=== PATIENT | female | born 1965 | race Caucasian/White ===

== ENCOUNTER 2019-08-01 00:34 | Outpatient (CLI) | payer OTHER, SELFPAY ==
[2019-08-01 17:31] LABS: SARS-CoV-2 RNA PCR Negative
== END 2019-08-01 00:35 | disposition home or self-care (01) ==
LOC: ANHCOVIDDT 00:34
PROVIDERS: PCP Family Medicine; Visit Provider Surgery Plastic and Reconstructive Surgery
DX: Z01.812 Encounter for preprocedural laboratory examination (principal); Z20.828 Contact with and (suspected) exposure to other viral communicable diseases
CPT/HCPCS: 87635; C9803; U0003

== ENCOUNTER 2019-08-03 01:51 | Day surgery (SDC) | payer OTHER, SELFPAY ==
[2019-07-28 10:35] VITALS: BMI 23.7
[2019-08-03] VITALS (7 sets, daily range): BP systolic 86–131; BP diastolic 62–78; PULSE 71–94; RESP 10–18; TEMP 36.3–36.6; O2SAT 98–100; BMI 24.0
[2019-08-03] MEDS: LACTATED RINGERS 1,000 ML 30 ML IV CONT ×2 (08:40→13:22)
--- NOTE | 2019-08-03 09:10 | P.PNAN_ITS ---
Anes - Initial Pre Proc Eval Procedure: Operation Date: 08/03/19 10:30 Proposed Procedures p Debulking Lower Forehead Flap, Non Atomic Alar Leobardo Graft, Revision Right Forehead, Excision Skin Lesion Anterior Scalp - Randal Amin MD Date/Time: 08/03/19 09:10 Surgeon: Randal Amin MD Pre Op Diagnosis: hx of skin cancer Patient Data Age: 53 Gender: F Height: 5 ft 3 in Weight: 61.6 kg Last Vital Signs Temp 36.3 C L 08/03/19 08:22 Pulse 76 08/03/19 08:22 Resp 16 08/03/19 08:22 BP 114/78 08/03/19 08:22 Pulse Ox 100 08/03/19 08:22 Allergies Allergy/AdvReac Type Severity Reaction Status Date / Time No Known Allergies Allergy Verified 08/03/19 08:18 Home Medications Medication Instructions Recorded Confirmed Type phentermine [Adipex-P] 37.5 mg PO DAILY 01/09/19 08/03/19 History Patient hx anesthesia problems: none Family hx anesthesia problems: none PMFSH Past Medical History Medical History BCC (basal cell carcinoma of skin) Surgical History Surgical History History of elbow surgery Status post skin flap graft Family History Family History Other Diabetes mellitus Social History Social History Smoking status: Never smoker Alcohol intake: current Spiritual care concerns: Yes (Christianity) Anes - Eval Final PreProcedure Day of Procedure 08/03/19 09:10 Patient weight: normal Heart: regular rate and rhythm Lungs: clear to auscultation Airway: Mallampati scale class II Neurological: alert and oriented Last oral intake: >/= 8 hours ASA classification: II Emergent: no Anesthetic plan: proceed Anesthesia type and monitoring: general ETT and standard monitoring Informed Consent: The patient's anesthetic plan and its attendant risks and benefits were discussed with the patient/family/POA. Questions were solicited and answers provided to the satisfaction of the patient/family/POA.
[2019-08-03] MEDS: SCOPOLAMINE 1.5 MG PATCH TRANSDERM (09:25)
--- NOTE | 2019-08-03 10:16 | WPDHPUPDATE1 ---
History and Physical Update Update Date/Time: 08/03/19 10:16 History and Physical has been reviewed, including an updated exam of the patient. There are NO changes in the patient's condition. Risks, benefits, and alternatives have been discussed and questions answered. Patient agrees to proceed with procedure.
--- NOTE | 2019-08-03 10:16 | PM.PROC ---
Procedure Note - Detailed Date of procedure: 08/03/19 Pre-op diagnosis: hx of skin cancer Acquired deformity nose History of forehead flap History radiation therapy History BCC Post-op diagnosis: same Procedure performed: 1. Debulk of forehead flap 3x2cm per side. 2. Bilateral non-anatomic alar mignon graft. 3. Revision forehead scar 3x2cm 4. Excision biopsy scalp 2cm Description of procedure: Patient was marked in the preoperative holding area with her verification. She was taken to the operating room placed supine on the operating room table. Anesthesia was provided by anesthesiology and prepped and draped in a standard sterile fashion. Surgical time-out was taken. 1% lidocaine and 0.25% Marcaine with epinephrine was used anesthetize locally at the scalp lesion, the right forehead, bilateral ears, and nose. A 15 blade used to excise the lesion of the scalp. This was closed with 4-0 Monocryl and 4-0 chromic. I marked out the area on right forehead. A 15 blade used to elevate and excise the soft tissue as necessary to get a good contour. This was closed using 4-0 Monocryl and 5 0 nylon. Both ears proceeded the same way. A 15 blade was used to make a postauricular incision. Dissection was continued down and the chondral cartilage was harvested. I closed with 4-0 Monocryl and 5-0 Chromic. A 15 blade used to nasal border incisions. I elevated anterior and posterior flaps leaving these adequate thick as she has had a history of radiation in this area. I debrided the subcutaneous volume of the forehead flap sharply. The cartilage grafts were trimmed as necessary and introduced into the pocket. This was closed with 5 0 nylon. I then did a through and through suture in 2 separate locations to approximate the grafts to the soft tissue. This was a tie-over bolster was Xeroform using 3-0 nylon. I helped with the ala and contour prior to suturing these. A twenty-four nasal trumpet was introduced into the nostril to help maintain the shape during this early healing. This was sutured into place with a 3-0 nylon. Compression dressings were placed in the ear keegan bowls. Bacitracin ophthalmic. Throughout the entire procedure did have Steri-Strips on the eyes. She was woken taken the PACU without difficulty. All instrument sponge counts were correct at the end of the case. .... Anesthesia: GLMA Surgeon: Randal Amin MD Estimated blood loss (mL): 10 Drains: No Packing: Yes (Nasal trumpet bilateral nostril.) Pathology: yes (Scalp lesion) Complications: No immediate complications Condition: stable Disposition: PACU
[2019-08-03] MEDS: ceFAZolin 2 GM/D5W 50 ML 2 GM/50 ML BAG IVPB (10:29)
[2019-08-03] MEDS: LIDO 1%/EPINEPHRINE 1:100,000 20 ML VIAL INFILTRATE (11:29)
--- NOTE | 2019-08-03 14:52 | SUR.PHASEII ---
PT DRESSED WAITING FOR HER TO PICK HER UP.
--- NOTE | 2019-08-03 14:55 | SUR.PHASEII ---
LEFT EAR ALSO DRAINING SMALL AMOUNT RED BLOOD. PT DABBING IT GENTLY. DR. NIXON TO CALL IN PAIN MED SCRIPT PER PT REQUEST.
== END 2019-08-03 15:00 | disposition home or self-care (01) ==
PROVIDERS: PCP Family Medicine; Visit Provider Surgery Plastic and Reconstructive Surgery
PROC: (CPT 11423; principal; 2019-08-03 10:30)
DX: M95.0 Acquired deformity of nose (principal); L82.1 Other seborrheic keratosis; L90.5 Scar conditions and fibrosis of skin; Z85.89 Personal history of malignant neoplasm of other organs and systems; Z85.828 Personal history of other malignant neoplasm of skin; Z92.3 Personal history of irradiation
CPT/HCPCS: 11423; 12032; 11446; 12052; 21235; 30465; 15630; 88305; A9270; J0131; J0690; J1100; J2250; J2370; J2405; J2704; J3010; J7120